=== PATIENT | female | born 1955 | race Caucasian/White ===

== ENCOUNTER 2016-10-17 08:21 | Emergency (ER) | payer MEDICARE, OTHER ==
[2016-10-17] MEDS ORDERED: IPRATROPIUM 0.5 MG/2.5 ML NEBU INHALATION STA (08:36)
[2016-10-17] MEDS ORDERED: ALBUTEROL NEBULIZED 2.5 MG/3 ML INHALATION STA (08:36)
[2016-10-17] MEDS ORDERED: SODIUM CHLORIDE 0.9% 1,000 ML IV STA (08:36)
[2016-10-17] MEDS ORDERED: methylPREDNISolone SOD SUCCI 125 MG/2 ML VIAL IV STA (08:36)
--- NOTE | 2016-10-17 08:40 | ED ---
General Adult HPI - General Chief complaint: Shortness of Breath Stated complaint: SOB Time Seen by Provider: 10/17/16 08:26 Source: patient, RN notes reviewed, old records reviewed Mode of arrival: wheelchair Limitations: no limitations - History of Present Illness Initial comments: This is a 67-year-old female the ER for evaluation of shortness of breath. Increased shortness of breath cough or congestion. History of COPD, COPD exacerbation no fevers no travel history no significant sick contacts. No recent hospitalizations per patient, no chest pain. - Related Data Home Medications Medication Instructions Recorded Confirmed ALPRAZolam [Xanax] 1 mg PO BID PRN 08/03/15 11/08/15 HYDROcodone/APAP 10-325MG [Spray 1 tab PO Q4HR PRN 08/03/15 11/08/15 10-325] Omeprazole [PriLOSEC] 20 mg PO AC-BRKFST 08/03/15 11/08/15 Aspirin EC [Ecotrin] 81 mg PO DAILY 09/26/15 11/08/15 Atenolol [Tenormin] 100 mg PO DAILY 09/26/15 11/08/15 Docusate [Colace] 100 mg PO BID 09/26/15 11/08/15 Loratadine [Claritin] 10 mg PO DAILY 09/26/15 11/08/15 Meloxicam [Mobic] 15 mg PO DAILY 09/26/15 11/08/15 tiZANidine [Zanaflex] 4 mg PO Q8HR PRN 09/26/15 11/08/15 traZODone HCL [Desyrel] 100 mg PO DAILY 09/26/15 11/08/15 rOPINIRole HCL [Requip] 0.5 mg PO DAILY 11/08/15 11/08/15 Previous Rx's Medication Instructions Recorded Albuterol Nebulized [Ventolin 2.5 mg INHALATION Q4H PRN #25 nebu 11/08/15 Nebulized] Azithromycin [Zithromax Z-pack] 0 mg PO DIRECTED #1 pack 11/08/15 Promethaz-Cod 6.25-10 mg/5 ml 5 ml PO Q6HR PRN #100 ml 11/08/15 [Phenergan with Codeine] Varenicline Tartrate [Chantix] 1 each PO DIRECTED #1 tab.ds.pk 11/08/15 methylPREDNISolone [Medrol Dose 4 mg PO DIRECTED #1 pack 11/08/15 Pack] Azithromycin [Zithromax Z-pack] 0 mg PO DIRECTED #1 pack 10/17/16 Codeine Phosphate/Guaifenesin 5 ml PO BID PRN #150 ml 10/17/16 [Guaifenesin-Codeine Syrup] predniSONE 50 mg PO DAILY #5 tab 10/17/16 Allergies Allergy/AdvReac Type Severity Reaction Status Date / Time ibuprofen AdvReac Nausea Verified 10/17/16 08:25 Review of Systems ROS Statement: Those systems with pertinent positive or pertinent negative responses have been documented in the HPI. ROS Other: All systems not noted in ROS Statement are negative. Past Medical History Past Medical History: Asthma, COPD, GERD/Reflux, Hypertension Additional Past Medical History / Comment(s): allergies History of Any Multi-Drug Resistant Organisms: None Reported Past Surgical History: Bladder Surgery, Section, Tonsillectomy Additional Past Surgical History / Comment(s): bladder and rectal sling 2 months ago Past Psychological History: Anxiety Smoking Status: Current every day smoker Past Alcohol Use History: None Reported Past Drug Use History: None Reported General Exam Limitations: no limitations General appearance: alert, in no apparent distress Head exam: Present: atraumatic, normocephalic, normal inspection Eye exam: Present: normal appearance, PERRL, EOMI. Absent: scleral icterus, conjunctival injection, periorbital swelling ENT exam: Present: normal exam, mucous membranes moist Neck exam: Present: normal inspection. Absent: tenderness, meningismus, lymphadenopathy Respiratory exam: Present: normal lung sounds bilaterally. Absent: respiratory distress, wheezes, rales, rhonchi, stridor Cardiovascular Exam: Present: regular rate, normal rhythm, normal heart sounds. Absent: systolic murmur, diastolic murmur, rubs, gallop, clicks GI/Abdominal exam: Present: soft, normal bowel sounds. Absent: distended, tenderness, guarding, rebound, rigid Extremities exam: Present: normal inspection, full ROM, normal capillary refill. Absent: tenderness, pedal edema, joint swelling, calf tenderness Back exam: Present: normal inspection Neurological exam: Present: alert, oriented X3, CN II-XII intact Psychiatric exam: Present: normal affect, normal mood Skin exam: Present: warm, dry, intact, normal color. Absent: rash Course Vital Signs 10/17/16 10/17/16 10/17/16 08:23 09:01 09:16 Temperature 97.5 F L Pulse Rate 67 60 64 Respiratory 20 Rate Blood Pressure 181/94 O2 Sat by Pulse 97 Oximetry 10/17/16 10/17/16 09:46 09:49 Temperature Pulse Rate 74 68 Respiratory 18 Rate Blood Pressure 159/91 O2 Sat by Pulse 100 Oximetry - Reevaluation(s) Reevaluation #1: 10/17/16 10:36 Patient very grateful, feeling much improved after breathing treatment EKG Findings - EKG Comments: EKG Findings:: EKG shows normal sinus rhythm rate of 70, IA 138, QRS 96, QTC 421 Medical Decision Making - Medical Decision Making 61 female here for evaluation of COPD exacerbation secondary to not having home medication. Patient is on vacation. Patient states that her symptoms are improved, she would like to be discharged home - Lab Data Result diagrams: 10/17/16 08:50 10/17/16 08:50 Lab Results 10/17/16 10/17/16 10/17/16 Range/Units 08:50 08:50 08:50 WBC 6.0 (3.8-10.6) k/uL RBC 4.71 (3.80-5.40) m/uL Hgb 15.0 (11.4-16.0) gm/dL Hct 44.5 (34.0-46.0) % MCV 94.6 (80.0-100.0) fL MCH 31.9 (25.0-35.0) pg MCHC 33.7 (31.0-37.0) g/dL RDW 13.4 (11.5-15.5) % Plt Count 183 (150-450) k/uL Neutrophils % 47 % Lymphocytes % 40 % Monocytes % 6 % Eosinophils % 5 % Basophils % 1 % Neutrophils # 2.8 (1.3-7.7) k/uL Lymphocytes # 2.4 (1.0-4.8) k/uL Monocytes # 0.3 (0-1.0) k/uL Eosinophils # 0.3 (0-0.7) k/uL Basophils # 0.1 (0-0.2) k/uL PT (9.0-12.0) sec INR (<1.1) APTT (22.0-30.0) sec Sodium 137 (137-145) mmol/L Potassium 3.9 (3.5-5.1) mmol/L Chloride 100 (98-107) mmol/L Carbon Dioxide 30 (22-30) mmol/L Anion Gap 7 mmol/L BUN 32 H (7-17) mg/dL Creatinine 0.71 (0.52-1.04) mg/dL Est GFR (MDRD) Af Amer >60 (>60 ml/min/1.73 sqM) Est GFR (MDRD) Non-Af >60 (>60 ml/min/1.73 sqM) Glucose 87 (74-99) mg/dL Calcium 9.5 (8.4-10.2) mg/dL Magnesium 2.0 (1.6-2.3) mg/dL Total Bilirubin 1.0 (0.2-1.3) mg/dL AST 54 H (14-36) U/L ALT 76 H (9-52) U/L Alkaline Phosphatase 72 (38-126) U/L Total Creatine Kinase 87 (30-135) U/L CK-MB (CK-2) 2.7 H* (0.0-2.4) ng/mL CK-MB (CK-2) Rel Index 3.1 Troponin I <0.012 (0.000-0.034) ng/mL NT-Pro-B Natriuret Pep pg/mL Total Protein 7.9 (6.3-8.2) g/dL Albumin 4.4 (3.5-5.0) g/dL 10/17/16 10/17/16 Range/Units 08:50 08:50 WBC (3.8-10.6) k/uL RBC (3.80-5.40) m/uL Hgb (11.4-16.0) gm/dL Hct (34.0-46.0) % MCV (80.0-100.0) fL MCH (25.0-35.0) pg MCHC (31.0-37.0) g/dL RDW (11.5-15.5) % Plt Count (150-450) k/uL Neutrophils % % Lymphocytes % % Monocytes % % Eosinophils % % Basophils % % Neutrophils # (1.3-7.7) k/uL Lymphocytes # (1.0-4.8) k/uL Monocytes # (0-1.0) k/uL Eosinophils # (0-0.7) k/uL Basophils # (0-0.2) k/uL PT 10.4 (9.0-12.0) sec INR 1.0 (<1.1) APTT 24.3 (22.0-30.0) sec Sodium (137-145) mmol/L Potassium (3.5-5.1) mmol/L Chloride (98-107) mmol/L Carbon Dioxide (22-30) mmol/L Anion Gap mmol/L BUN (7-17) mg/dL Creatinine (0.52-1.04) mg/dL Est GFR (MDRD) Af Amer (>60 ml/min/1.73 sqM) Est GFR (MDRD) Non-Af (>60 ml/min/1.73 sqM) Glucose (74-99) mg/dL Calcium (8.4-10.2) mg/dL Magnesium (1.6-2.3) mg/dL Total Bilirubin (0.2-1.3) mg/dL AST (14-36) U/L ALT (9-52) U/L Alkaline Phosphatase (38-126) U/L Total Creatine Kinase (30-135) U/L CK-MB (CK-2) (0.0-2.4) ng/mL CK-MB (CK-2) Rel Index Troponin I (0.000-0.034) ng/mL NT-Pro-B Natriuret Pep 87 pg/mL Total Protein (6.3-8.2) g/dL Albumin (3.5-5.0) g/dL - Radiology Data Radiology results: report reviewed (Chest x-ray is negative for acute disease), image reviewed Disposition Clinical Impression: Acute exacerbation of chronic obstructive airways disease Disposition: HOME SELF-CARE Condition: Good Instructions: Acute Bronchitis (ED) Prescriptions: Azithromycin [Zithromax Z-pack] 0 mg PO DIRECTED #1 pack Codeine Phosphate/Guaifenesin [Guaifenesin-Codeine Syrup] 5 ml PO BID PRN #150 ml PRN Reason: Cough predniSONE 50 mg PO DAILY #5 tab Referrals: Nonstaff,Physician [Primary Care Provider] - 1-2 days
[2016-10-17 09:08] LABS: Basophils # (A) 0.1 k/uL (0-0.2); Basophils % (A) 1 %; CH 32.9; Eosinophils # (A) 0.3 k/uL (0-0.7); Eosinophils % (A) 5 %; HCT 44.5 % (34.0-46.0); HDW 2.89; Luc # (Auto) 0.12; Luc % (Auto) 2; Lymphocytes # (A) 2.4 k/uL (1.0-4.8); Lymphocytes % (A) 40 %; MCH 31.9 pg (25.0-35.0); MCHC 33.7 g/dL (31.0-37.0); MCV 94.6 fL (80.0-100.0); Mean Platelet Volume 7.4; Monocytes # (A) 0.3 k/uL (0-1.0); Monocytes % (A) 6 %; Neutrophils # (A) 2.8 k/uL (1.3-7.7); Neutrophils % (A) 47 %; RBC 4.71 m/uL (3.80-5.40); RDW 13.4 % (11.5-15.5); WBC (Perox) 5.93
[2016-10-17 09:18] LABS: ALT 76 U/L (9-52); AST 54 U/L (14-36); Alkaline Phosphatase 72 U/L (38-126); Anion Gap 7 mmol/L; Blood Urea Nitrogen 32 mg/dL (7-17); Calcium 9.5 mg/dL (8.4-10.2); Carbon Dioxide 30 mmol/L (22-30); Chloride 100 mmol/L (98-107); Glucose 87 mg/dL (74-99); Non-African American GFR(MDRD) >60 (>60 ml/min/1.73 sqM); Potassium 3.9 mmol/L (3.5-5.1); Sodium 137 mmol/L (137-145); Total Protein 7.9 g/dL (6.3-8.2)
[2016-10-17 09:21] LABS: Partial Thromboplastin Time 24.3 sec (22.0-30.0); Prothrombin Time 10.4 sec (9.0-12.0)
[2016-10-17 09:28] LABS: Creatine Kinase 87 U/L (30-135)
[2016-10-17 09:41] LABS: Creatine Kinase MB 2.7 ng/mL (0.0-2.4); Troponin I <0.012 ng/mL (0.000-0.034)
[2016-10-17 09:48] VITALS: RESP 18
--- NOTE | 2016-10-17 10:01 | XR ---
EXAMINATION TYPE: XR chest 2V DATE OF EXAM: 10/17/2016 COMPARISON: 11/08/2015 HISTORY: Shortness of breath TECHNIQUE: Frontal and lateral views of the chest are obtained. FINDINGS: Scattered senescent parenchymal changes noted. Hyperinflation compatible with COPD. No evidence for infiltrate. No evidence for atelectasis. Heart size is stable. Mediastinal structures are stable and grossly unremarkable. No evidence for hilar prominence. Degenerative changes dorsal spine. IMPRESSION: 1. No evidence for acute pulmonary disease.
[2016-10-17] MEDS ORDERED: AZITHROMYCIN 500 MG TAB PO STA (10:33)
[2016-10-17] MEDS ORDERED: ACET/COD 240MG/24MG LIQ 10 ML SYRG PO ONE (10:33)
[2016-10-17 10:59] VITALS: BP 143/89; PULSE 82; TEMP 97
== END 2016-10-17 10:59 | disposition home or self-care (01) ==
LOC: EC 08:21
DX: J44.1 Chronic obstructive pulmonary disease with (acute) exacerbation (principal); I10 Essential (primary) hypertension; K21.9 Gastro-esophageal reflux disease without esophagitis; F41.9 Anxiety disorder, unspecified; F17.200 Nicotine dependence, unspecified, uncomplicated; Z79.1 Long term (current) use of non-steroidal anti-inflammatories (NSAID); Z79.82 Long term (current) use of aspirin; Z79.899 Other long term (current) drug therapy; Z88.6 Allergy status to analgesic agent; Z91.09 Other allergy status, other than to drugs and biological substances
CPT/HCPCS: 36415; 94644; 93005; 83880; 80053; 82550; 82553; 83735; 84484; 85025; 85610; 85730; 71020; 99285; 96374; 96361; J2930